=== PATIENT | female | born 1990 | race Caucasian/White ===

== ENCOUNTER 2024-03-29 20:05 | Emergency (ER) | payer OTHER, MEDICAID ==
[~2024-03-29] VITALS: Ht 170.2 cm; Wt 93.0 kg
[2024-03-29 22:33] VITALS: BP 121/74; PULSE 64; RESP 14; TEMP 97.9; O2SAT 99
== END 2024-03-29 22:34 | disposition home or self-care (01) ==
LOC: ER 20:06
DX: S00.83XA Contusion of other part of head, initial encounter (principal); S09.90XA Unspecified injury of head, initial encounter; S19.9XXA Unspecified injury of neck, initial encounter; M54.2 Cervicalgia; V89.2XXA Person injured in unspecified motor-vehicle accident, traffic, initial encounter; Y93.89 Activity, other specified; Y92.89 Other specified places as the place of occurrence of the external cause; Y99.8 Other external cause status
CPT/HCPCS: 70486; 99284